=== PATIENT | female | born 1995 | race Caucasian/White ===

== ENCOUNTER 2020-10-15 09:56 | Emergency (ER) | payer OTHER, SELFPAY ==
--- NOTE | 2020-10-15 10:07 | ED.DENTAL ---
HPI - Dental/Oral General Chief complaint: Dental/Oral Stated complaint: Tooth Pain Time Seen by Provider: 10/15/20 10:07 Source: patient and RN notes reviewed Mode of arrival: ambulatory Limitations: no limitations History of Present Illness HPI Narrative: 24 yo female presents to the [facility] for dental pain. Tried calling a dental provider and they were unable to get her in today. Pain and swelling to the left upper molars. facial swelling noted without redness. Denies sore throat, ear pain, chest pain or abd pain. MD Complaint: tooth pain Location: Tooth # (15) Related Data Home Medications Medication Instructions Recorded Confirmed No Home Medications 10/15/20 10/15/20 Allergies Allergy/AdvReac Type Severity Reaction Status Date / Time No Known Allergies Allergy Unverified 12/16/16 11:44 Review of Systems Review of Systems: Narrative: CONSTITUTIONAL: Denies fever, chills, or sweats. EYES: Denies visual changes, redness, or discharge. ENT: Denies rhinorrhea, congestion, sore throat, or otalgia. Left upper dental pain CARDIOVASCULAR: Denies chest pain, palpitations, or edema. RESPIRATORY: Denies cough or dyspnea. GASTROINTESTINAL: Denies abdominal pain, nausea, vomiting, or diarrhea. GENITOURINARY: Denies dysuria or hematuria. SKIN: Denies rash or itching. MUSCULOSKELETAL: Denies back pain, joint pain, or myalgia. NEUROLOGIC: Denies headache, numbness, or weakness. PSYCHIATRIC: Denies anxiety or depression. All other systems reviewed are negative, except as documented in HPI. [facility] Past Medical History Medical History (Updated 10/15/20 @ 10:22 by Inés Coronado) Dental abscess Comments At the time of my signature, I reviewed and agree with the nursing past medical, surgical, social, and family history. There is no relevant family history pertinent to the patient complaint. Exam Narrative: Exam Narrative: GENERAL: This is a well-nourished, well-developed patient, in no apparent distress. HEAD: normocephalic, atraumatic. EYES: PERRL. Sclera clear/white. Vision is grossly intact. EARS: External ears normal, auditory canals clear and without drainage, TMs normal without perforation. Hearing grossly intact. NOSE: External nose normal with no obvious nasal discharge, nares without redness, no rhinorrhea. THROAT: Mucous membranes moist, posterior pharynx clear. NECK: Neck supple, non-tender with left-sided lymphadenopathy. No masses or thyromegaly. CARDIOVASCULAR: Regular rate and rhythm without murmurs, gallops, or rubs. RESPIRATORY: Clear to auscultation. Breath sounds equal bilaterally. No wheezes, rales, or rhonchi. GASTROINTESTINAL: Abdomen soft, non-tender, nondistended. Bowel sounds are active. SKIN: warm, intact with no suspicious lesions or rash, good texture and turgor. NEURO: awake, alert, and oriented to person, place and time. There were no obvious focal neurologic abnormalities. EXTREMITIES: No clubbing, cyanosis, or edema. No joint tenderness, effusion, or edema noted. BACK: Nontender without deformity or crepitance. No flank tenderness. Const: General: alert and ill appearing Nutritional Appearance: well nourished Orientation/consciousness: patient oriented x3 HENMT: Teeth and gingiva: caries and gingiva abnormal (redness and swelling noted to the upper left) tender Teeth image: 1. decayed Throat: tonsils normal and uvula midline Course Vital Signs Vital signs: Vital Signs Temperature 97.0 F L 10/15/20 10:11 Pulse Rate 79 10/15/20 10:11 Respiratory Rate 18 10/15/20 10:11 Blood Pressure 123/63 10/15/20 10:11 Pulse Oximetry 100 10/15/20 10:11 Temperature 97.0 F L 10/15/20 10:11 Pulse Rate 79 10/15/20 10:11 Respiratory Rate 18 10/15/20 10:11 Blood Pressure 123/63 10/15/20 10:11 Pulse Oximetry 100 10/15/20 10:11 Reviewed, within defined limits MDM - Dental/Oral Differential Diagnosis Differential diagnosis: Likely gingival abscess, dent
[2020-10-15 10:11] VITALS: BP 123/63; PULSE 79; RESP 18; TEMP 36.1; O2SAT 100
== END 2020-10-15 10:28 | disposition home or self-care (01) ==
PROVIDERS: Emergency Provider Nurse Practitioner; PCP Physician Assistant
DX: K04.7 Periapical abscess without sinus (principal)
CPT/HCPCS: 99213; G0463

== ENCOUNTER 2021-06-18 13:04 | Emergency (ER) | payer BC, SELFPAY ==
[2021-06-18 13:19] VITALS: BP 108/64; PULSE 94; RESP 18; TEMP 37; O2SAT 100
--- NOTE | 2021-06-18 14:23 | ED.FEMALEGU ---
HPI - Female Genitourinary General Chief complaint: Urogenital-Female Stated complaint: Abdominal Pain Time Seen by Provider: 06/18/21 14:24 Source: patient Mode of arrival: ambulatory Limitations: no limitations History of Present Illness HPI Narrative: Malena Luna is a 25 yo female with no PMH who [facility] with 3 days of suprapubic pain, feels tender when she tries to urinate, and feeling feverish. She said the leg pain before and when she has had a UTI Related Data Allergies Allergy/AdvReac Type Severity Reaction Status Date / Time No Known Allergies Allergy Verified 06/18/21 14:03 Review of Systems Review of Systems: CONSTITUTIONAL: Denies fever, chills, sweats. EYES: Denies visual changes, redness, discharge. ENT: Denies rhinorrhea, congestion, sore throat, otalgia. CARDIOVASCULAR: Denies chest pain, palpitations, edema. RESPIRATORY:nodyspnea, wheezing, cough GASTROINTESTINAL: Denies abdominal pain, nausea, vomiting, diarrhea. GENITOURINARY:has dysuria, suprapubic pain hematuria, abnormal discharge SKIN: Denies rash or itching. NEUROLOGIC: Denies numbness, or focal weakness. PSYCHIATRIC: Denies anxiety or depression. [facility] Past Medical History Medical History Dental abscess Family History Family History Other No acute medical problems Social History Social History (Updated 06/18/21 @ 14:30 by Patti Esposito CNP) Smoking packs per day: 0.5 Smoking cigarettes per day: 10.0 Smoking status: Current every day smoker Alcohol intake: current Comments At time of signature, I agree with nursing past medical, surgical, social and family history. There is no relevant family history pertinent to the presenting complaint. Exam Narrative: GENERAL: This is a well-nourished, well-developed patient, in mild distress. HEAD: normocephalic, atraumatic. EYES:Sclera clear/white. Vision is grossly intact. EARS: External ears normal. Hearing grossly intact. NOSE: External nose normal without nasal discharge, nares without redness, no rhinorrhea. THROAT: Mucous membranes moist, NECK: Neck supple, non-tender CARDIOVASCULAR: Regular rate and rhythm without murmurs, gallops, or rubs. RESPIRATORY: Clear to auscultation. Breath sounds equal bilaterally. No wheezes, rales, or rhonchi. GASTROINTESTINAL: Abdomen soft, -tender, at suprapubic area SKIN: warm, intact with no suspicious lesions or rash, good texture and turgor. NEURO: awake, alert, and oriented to person, place and time. There were no obvious focal neurologic abnormalities. Steady gait EXTREMITIES: Normal range of motion. BACK: Nontender without deformity Course Course Emergency Course: Patient comes to urgent care with suprapubic pain and has tenderness with urination. She has had UTI before she also historically started using tampons more recently UA-trace leukocytes, trace ketones, 1+ blood-just off menstrual cycle Started on cephalexin 500 mg 1 twice daily x5 days encouraged to push fluids Vital Signs Vital signs: Vital Signs Temperature 98.6 F 06/18/21 13:19 Pulse Rate 94 06/18/21 13:19 Respiratory Rate 18 06/18/21 13:19 Blood Pressure 108/64 06/18/21 13:19 Pulse Oximetry 100 06/18/21 13:19 Temperature 98.6 F 06/18/21 13:19 Pulse Rate 94 06/18/21 13:19 Respiratory Rate 18 06/18/21 13:19 Blood Pressure 108/64 06/18/21 13:19 Pulse Oximetry 100 06/18/21 13:19 MDM - Female Genitourinary Differential Diagnosis Differential diagnosis: Likely urinary tract infection, cystitis and other Lab Data Labs: Urine Glucose Negative Reference Range: Negative Urine Bilirubin Negative Reference Range: Negative Urine Ketone Trace
== END 2021-06-18 14:38 | disposition home or self-care (01) ==
PROVIDERS: Emergency Provider Nurse Practitioner; PCP Physician Assistant
DX: N30.90 Cystitis, unspecified without hematuria (principal); F17.210 Nicotine dependence, cigarettes, uncomplicated
CPT/HCPCS: 81003; 87086; 99213; G0463

== ENCOUNTER 2024-01-05 08:17 | Emergency (ER) | payer BC, SELFPAY ==
[2024-01-05 08:31] VITALS: BP 116/60; PULSE 77; RESP 16; TEMP 36.6; O2SAT 98
--- NOTE | 2024-01-05 08:42 | ED_ITS ---
HPI - Skin/Abscess/Foreign Bdy General Chief complaint: Skin/Abscess/Foreign Body Stated complaint: breaking out ,swollen on body Time Seen by Provider: 01/05/24 08:32 Source: patient Mode of arrival: ambulatory Limitations: no limitations History of Present Illness HPI narrative: 28 y/o female presented for c/o itchy rash/hives all over body. First noticed a few spots yesterday at 1600, which she thought was insect bites, progressed throughout the night to cover torso and face, with lip swelling. Starting to spread to arms and legs. Denies tongue, or throat swelling, shortness of breath or wheezing. Denies changes to soap, detergent, lotion, meds, food, or any other exposures. No one else in the house or any contacts with similar symptoms. States she was around a dog prior to onset. Related Data Allergies Allergy/AdvReac Type Severity Reaction Status Date / Time No Known Allergies Allergy Verified 01/05/24 08:27 Review of Systems Review of Systems: CONSTITUTIONAL: Denies body aches, fever, chills, or sweats. EYES: Denies visual changes, redness, or discharge. ENT: Denies rhinorrhea, congestion CARDIOVASCULAR: Denies chest pain, palpitations, or edema. RESPIRATORY: Denies cough or dyspnea. GASTROINTESTINAL: Denies abdominal pain, nausea, vomiting, or diarrhea. SKIN: reports rash MUSCULOSKELETAL: Denies back pain, joint pain, or myalgia. NEUROLOGIC: Denies headache, numbness, tingling, or weakness. [facility] Past Medical History Medical History Dental abscess Family History Family History Other No acute medical problems Social History Social History Smoking packs per day: 0.5 Smoking cigarettes per day: 10.0 Smoking status: Current every day smoker Alcohol intake: current Comments At time of signature, I have reviewed and agree with nursing past medical, surgical, social and family history unless otherwise noted. Please see nursing chart for further information. There is no relevant family history pertinent to the presenting complaint Exam Narrative: GENERAL: Well-appearing HEAD: Normocephalic, atraumatic. EYES: conjunctivae clear, and EOMI. No periorbital edema. ENT: Mucous membranes moist. Mild lip swelling. Oropharynx without edema, erythema or lesions. NECK: Supple. No lymphadenopathy CHEST: Clear to auscultation. Speaks full sentences, no hoarseness or drooling. HEART: Regular rate and rhythm. SKIN: Warm, dry. Diffuse Urticaria noted over torso and scattered on face, lips, neck; spreading to arms and legs NEURO: Alert and oriented x3. Course Course Emergency Course: Patient is aware of diagnosis, understands and agrees to treatment plan. Anticipatory guidance given. Patient agrees to follow-up as directed and is aware of reasons to seek care at the emergency department. Portions of this record may have been created with voice recognition software Level of Care: Express Care Visit Vital Signs Vital signs: Vital Signs Temperature 97.9 F 01/05/24 08:31 Pulse Rate 77 01/05/24 08:31 Respiratory Rate 16 01/05/24 08:31 Blood Pressure 116/60 01/05/24 08:31 Pulse Oximetry 98 01/05/24 08:31 Oxygen Delivery Room Air 01/05/24 08:31 Temperature 97.9 F 01/05/24 08:31 Pulse Rate 77 01/05/24 08:31 Respiratory Rate 16 01/05/24 08:31 Blood Pressure 116/60 01/05/24 08:31 Pulse Oximetry 98 01/05/24 08:31 Oxygen Delivery Room Air 01/05/24 08:31 Reviewed MDM - Skin/Abscess/Foreign Bdy MDM Narrative Medical decision making narrative: IM solumedrol, po Pepcid, and Benadryl given. Pt reassessed after monitoring. Pt reports improvement in lip swelling, and overall urticaria appears improved. Discussed at length s/s to go to the ER including [facility]. Pt's mother will be staying with pt today. Reviewed Rxs. Discussed physical exam findings. Advised supportive measures. Pt is appropriate for outpt treatment and f/u.Instructed patient to go to nearest ER immediately for any worsening symptoms including but not limited to: fever, spreading rash, pain, sore throat, headache, dizziness, chest pain, trouble breathing, or any symptoms concerning to the patient. Differential Diagnosis Differential diagnosis: Likely abscess of skin or subcutaneous tissue, viral exanthem, urticaria, herpes zoster, allergic reaction to drug, cellulitis, eczema, insect bites, impetigo and contact dermatitis Discharge Plan Discharge Clinical Impression: Urticaria Patient Disposition: Home, Self-Care Condition: Stable Instructions: Antibiotic Form, Urticaria (ED), Angioedema (ED) Additional Instructions: Take steroids and Pepcid as directed. Start tomorrow Zyrtec according to package directions (over the counter) Cool compresses to the sites of itching, avoid hot water. Avoid scratching to reduce the risk of infection Follow up with your primary care provider as needed in 3 days Go to the ER for worsening symptoms or concerns (lip, tongue, throat swelling/itching, trouble breathing etc) Prescriptions: New famotidine [Pepcid] 40 mg tablet 40 mg PO DAILY Qty: 10 0RF methylprednisolone [Medrol (Matias)] 4 mg tablets,dose pack See Rx Instructions .ROUTE .COMPLEX Qty: 21 0RF Rx Instructions: orally per package directions Follow-up/Referrals: PHYSICIAN,ASSEMBLER ENGINE [Primary Care Provider] - Time of Disposition: 10:12
[2024-01-05] MEDS: FAMOTIDINE 20 MG TABLET 40 MG PO (08:55)
[2024-01-05] MEDS: diphenhydrAMINE HCl CAP 25 MG CAPSULE PO (08:55)
[2024-01-05] MEDS: methylPREDNISolone SOD SUCC 125 MG VIAL IM (08:56)
== END 2024-01-05 10:23 | disposition home or self-care (01) ==
PROVIDERS: Emergency Provider Nurse Practitioner Family
DX: L50.9 Urticaria, unspecified (principal)
CPT/HCPCS: 96372; 99213; A9270; G0463; J2919